=== PATIENT | male | born 1960 | race Caucasian/White ===

== ENCOUNTER → 2017-09-25 | Outpatient (CLI) | payer MEDICAID, OTHER ==
[~2017-09-25] MED LIST: ALLO300T PO; no meds
[2017-09-25 09:22] LABS: BASOPHILS # (AUTO) 0.02 x10^3/uL (0-0.1); BASOPHILS % (AUTO) 0 % (0-1); EOSINOPHILS # (AUTO) 0.32 x10^3/uL (0-0.4); EOSINOPHILS % (AUTO) 4 % (1-7); LYMPHOCYTES # (AUTO) 1.92 x10^3/uL (1-3.4); LYMPHOCYTES % (AUTO) 25 % (22-44); MD NO; MEAN CORPUSCULAR HEMOGLOBIN 32.2 pg (27.5-34.5); MEAN CORPUSCULAR HGB CONC 33.8 g/dL (33.2-36.2); MEAN CORPUSCULAR VOLUME 95.2 fL (81-97); MEAN PLATELET VOLUME 8.4 fL (7.4-10.4); MONOCYTES # (AUTO) 0.65 x10^3/uL (0.2-0.8); MONOCYTES % (AUTO) 9 % (2-9); NEUTROPHILS # (AUTO) 4.67 x10^3/uL (1.8-6.8); NEUTROPHILS % (AUTO) 62 % (42-75); PLATELET COUNT 223 x10^3/uL (130-400); RED BLOOD COUNT 4.64 x10^6/uL (4.38-5.82); RED CELL DISTRIBUTION WIDTH 13.6 % (9.4-14.8)
[2017-09-25 09:29] LABS: INTERNATIONAL NORMALIZED RATIO 0.97 (0.93-1.1); PROTHROMBIN TIME 10.1 Seconds (9.6-11.5)
[2017-09-25 09:33] LABS: ANION GAP 6 mmol/L (5-15); CALCIUM 8.6 mg/dL (8.5-10.1); CHLORIDE 109 mmol/L (98-107); CREATININE 0.81 mg/dL (0.7-1.3)
[2017-09-25 12:51] LABS: HEMOGLOBIN A1C 5.8 % (4.2-6.3)
== END | disposition home or self-care (01) ==
LOC: STAR 08:06
PROVIDERS: ATTEND Orthopaedic Surgery
DX: Z01.818 Encounter for other preprocedural examination (principal); M17.12 Unilateral primary osteoarthritis, left knee; M19.90 Unspecified osteoarthritis, unspecified site; K21.9 Gastro-esophageal reflux disease without esophagitis
CPT/HCPCS: 36415; 80048; 83036; 85025; 85610; 85730; 87081; 93005

== ENCOUNTER 2017-09-29 07:01 | Inpatient (IN) | payer MEDICAID, OTHER ==
[2017-09-25 09:29] VITALS: BP 150/96
[~2017-09-29] VITALS: Ht 177.8 cm; Wt 139.0 kg
[~2017-09-29 07:01] MED LIST changes: +EPINEPHRINE 1 MG/ML, 1ML ONE; +KETOROLAC 60 MG/2 ML ONE; +ROPivacaine/PF 0.2%, 10 ML ONE; +SODIUM CHLORIDE 0.9% 100 ML ONE; +TRANEXAMIC ACID 100 MG/ML, 10ML ONE
[2017-09-29] MEDS ORDERED: VANCOMYCIN PER PHARMACY MC ONE (07:07)
[2017-09-29] MEDS ORDERED: ACETAMINOPHEN 500 MG TABLET PO ONE (07:07)
[2017-09-29] MEDS ORDERED: OxyconTIN ER 10 MG TAB.ER PO ONE (07:12)
[2017-09-29] MEDS ORDERED: LACTATED RINGERS 1,000 ML IV SCH (07:28)
[2017-09-29] MEDS ORDERED: LIDOCAINE 1%, 2ML SQ PRN (07:30)
[2017-09-29] MEDS ORDERED: VANCOMYCIN 1,500 MG in SODIUM CHLORIDE 0.9% 250 ML IV ONE (07:30)
[2017-09-29] MEDS ORDERED: MIDAZOLAM 1 MG/ML, 2ML ONE (07:42)
[2017-09-29] MEDS ORDERED: FENTANYL PF 100 MCG/2ML IV PRN (08:00)
[2017-09-29] MEDS ORDERED: ALBUTEROL SULFATE 2.5 MG/3 ML NPPB PRN (08:00)
[2017-09-29] MEDS ORDERED: EPHEDRINE 50 MG/ML, 1ML IVPush PRN (08:00)
[2017-09-29] MEDS ORDERED: METOPROLOL 1 MG/ML, 5ML IV PRN (08:00)
[2017-09-29] MEDS ORDERED: hydrALAzine 20 MG/ML, 1ML IV PRN (08:00)
[2017-09-29] MEDS ORDERED: OXYcodone 5 MG/5 ML ORAL.SOL UDC PO PRN (08:00)
[2017-09-29] MEDS ORDERED: MEPERIDINE/PF 25MG/0.5ML IVPush PRN (08:00)
[2017-09-29] MEDS ORDERED: LABETALOL 5MG/ML, 20ML IV PRN (08:00)
[2017-09-29] MEDS ORDERED: HYDROmorphone 1 MG/ML, 1ML IV PRN ×2 (08:00→09:00)
[2017-09-29] MEDS ORDERED: ONDANSETRON 2MG/ML, 2ML IVPush PRN (08:00)
[2017-09-29] MEDS ORDERED: FENTANYL PF 250 MCG/5ML ONE (08:05)
[2017-09-29] MEDS ORDERED: GLYCOPYRROLATE 0.2MG/1ML, 5ML ONE (08:40)
[2017-09-29] MEDS ORDERED: NEOSTIGMINE 1 MG/ML, 10ML ONE (08:40)
[2017-09-29] MEDS ORDERED: ROCURONIUM 10 MG/ML,10ML ONE (08:40)
[2017-09-29] MEDS ORDERED: PROPOFOL 10 MG/ML, 20ML ONE (08:40)
[2017-09-29] MEDS ORDERED: LABETALOL 5MG/ML 40ML VIAL ONE (08:40)
[2017-09-29] MEDS ORDERED: ONDANSETRON 2MG/ML, 2ML ONE (08:40)
[2017-09-29] MEDS ORDERED: CEFAZOLIN 1,000 MG ONE (08:40)
[2017-09-29] MEDS ORDERED: SCOPOLAMINE PATCH, 1.5MG PATCH.TD72 TD ONE (09:00)
[2017-09-29] MEDS ORDERED: MAGNESIUM HYDROXIDE 8%, 30ML UDC PO PRN (09:00)
[2017-09-29] MEDS ORDERED: SENNA/DOCUSATE TABLET PO PRN (09:00)
[2017-09-29] MEDS ORDERED: DIPHENHYDRAMINE 50 MG CAPSULE PO PRN (09:00)
[2017-09-29] MEDS ORDERED: ONDANSETRON 4 MG TABLET PO PRN (09:00)
[2017-09-29] MEDS ORDERED: BISACODYL 10 MG SUPP PR PRN (09:00)
[2017-09-29] MEDS ORDERED: HYDROcodone/APAP 5/325 TABLET PO PRN (09:00)
[2017-09-29] MEDS ORDERED: ACETAMINOPHEN 650 MG/20.3 ML UDC PO PRN (09:00)
[2017-09-29] MEDS ORDERED: ONDANSETRON 2MG/ML, 2ML IV PRN (09:00)
[2017-09-29] MEDS ORDERED: HYDROmorphone 2 MG/ML, 1ML ONE ×2 (09:08→10:16)
[2017-09-29] MEDS ORDERED: OXYcodone 5 MG/5 ML ORAL.SOL UDC ONE (10:16)
[2017-09-29] MEDS: NS + 20MEQ KCL 1,000 ML IV SCH (12:39)
[2017-09-29] MEDS: DOCUSATE 100 MG CAPSULE PO SCH ×2 (12:39→20:33)
[2017-09-29] MEDS: ALLOPURINOL 300 MG TABLET PO SCH (12:39)
[2017-09-29] MEDS: OXYcodone IR 5MG TABLET PO PRN ×3 (12:39→20:33)
[2017-09-29 12:50] VITALS: BP 154/86
[2017-09-29] MEDS ORDERED: CEFAZOLIN PMX 2GM/50ML 50 ML IVPB SCH (13:00)
[2017-09-29 16:20] VITALS: BP 151/94
[2017-09-29] MEDS: CEFAZOLIN PMX 2GM/50ML 50 ML IVPB SCH (16:35)
[2017-09-29] MEDS: ASPIRIN 81 MG TABLET EC PO SCH (18:19)
[2017-09-29 19:58] VITALS: BP 143/89
[2017-09-29] MEDS ORDERED: ZOLPIDEM 5MG TABLET PO PRN (21:00)
[2017-09-30] VITALS: BP 162/96
[2017-09-30] MEDS: OXYcodone IR 5MG TABLET PO PRN ×4 (01:24→14:12)
[2017-09-30] MEDS: CEFAZOLIN PMX 2GM/50ML 50 ML IVPB SCH (01:25)
[2017-09-30] MEDS: NS + 20MEQ KCL 1,000 ML IV SCH ×2 (01:30→14:00)
[2017-09-30 04:00] VITALS: BP 144/84
[2017-09-30] MEDS: ASPIRIN 81 MG TABLET EC PO SCH (05:48)
[2017-09-30] MEDS ORDERED: DEXAMETHASONE 4 MG/ML, 1ML IVPush SCH (06:00)
[2017-09-30 07:13] VITALS: BP 148/96
[2017-09-30] MEDS: ALLOPURINOL 300 MG TABLET PO SCH (07:55)
[2017-09-30] MEDS: DOCUSATE 100 MG CAPSULE PO SCH (07:56)
[2017-09-30 12:56] VITALS: BP 150/89
[2017-09-30] MEDS ORDERED: PNEUMOCOCCAL 23 VACCINE IM-VACC ONE (13:00)
[2017-09-30] MEDS ORDERED: OXYC5CAP2 PO (13:39)
[2017-09-30] MEDS ORDERED: TRAM50TA2 PO (13:42)
[2017-09-30] MEDS ORDERED: MELO7.5T31 PO (13:43)
[2017-09-30] MEDS ORDERED: ONDA4TAB10 PO (13:43)
== END 2017-09-30 14:00 | disposition home or self-care (01) | DRG 470 ==
LOC: OUT 07:01 → ORIP 08:34 → EDSTATUS 08:45 → 4NOR 11:47
PROVIDERS: ADMIT Orthopaedic Surgery; ATTEND Orthopaedic Surgery
PROC: 0SRD0J9 Replacement of Left Knee Joint with Synthetic Substitute, Cemented, Open Approach (ICD-10-PCS; principal; 2017-09-29 08:45)
DX: M17.12 Unilateral primary osteoarthritis, left knee (principal); E66.01 Morbid (severe) obesity due to excess calories; Z68.41 Body mass index [BMI] 40.0-44.9, adult; K21.9 Gastro-esophageal reflux disease without esophagitis; Z23 Encounter for immunization
CPT/HCPCS: 36415; 85014; 85018; 90732; 93005; C1713; J0171; J0690; J1100; J1170; J1885; J2250; J2405; J2704; J2710; J2795; J3010; J3370; J3480; J3490; C1776; J7050